=== PATIENT | female | born 1970 | race Caucasian/White ===

== ENCOUNTER → 2019-03-03 12:45 | Outpatient (CLI) | payer OTHER, SELFPAY ==
--- NOTE | 2019-03-03 13:04 | US_ITS ---
PROCEDURE: US THYROID CLINICAL INDICATION: THYROMEGALY COMPARISON: No exams were available for comparison FINDINGS: Right lobe: 4.5 x 2.0 x 3.5 cm the there is a mixed cystic and solid nodule in the lower pole measuring 3.3 x 1.5 cm. The nodule is well-circumscribed and is wider than tall with lobulated margins. No internal calcifications.. T rads level 4. Left lobe: 4.6 x 1.1 x 1.6 cm. There are 2 four mm hypoechoic nodules central aspect of the thyroid gland. These are hypoechoic not well-defined with no internal echoes wider than tall. Six-month follow-up suggested Isthmus: Additional findings: IMPRESSION: 3 cm T rads level 4 nodule on the right. Ultrasound-guided fine needle aspiration suggested. Recommend six-month follow-up of the small nodules on the left Dictated by: Troy Feliciano MD 03/04/2019 00:59 Electronically signed by Troy Feliciano MD in [place] 03/05/2019 06:55
== END ==
PROVIDERS: PCP Family Medicine; Visit Provider Family Medicine
DX: E01.0 Iodine-deficiency related diffuse (endemic) goiter (principal)
CPT/HCPCS: 76536

== ENCOUNTER → 2019-04-11 12:51 | Outpatient (CLI) | payer OTHER, SELFPAY ==
--- NOTE | 2019-04-11 12:58 | US_ITS ---
PROCEDURE: US FNA THYROID CLINICAL INDICATION: THYROID NODULE Right-sided dominant T rads level 4 complex thyroid nodule COMPARISON: US THYROID from 03/03/2019 TECHNIQUE: Following obtaining informed consent, using aseptic technique and local anesthesia with buffered lidocaine, fine-needle aspiration was performed of the nodule of interest using sonographic guidance. 3 passes were made into the nodule with a 21-gauge needle. Specimen was given to cytology. FINDINGS: CYTOLOGY: Negative for malignant cells IMPRESSION: Ultrasound-guided fine needle aspiration of the thyroid nodule on the right is negative for malignant cells. No immediate complications. The patient tolerated the procedure well without evidence of immediate complications and left the ultrasound suite in stable condition. Dictated by: Troy Feliciano MD 04/21/2019 14:25 Electronically signed by Troy Feliciano MD in [facility] 04/21/2019 14:25
== END ==
PROVIDERS: PCP Family Medicine; Visit Provider Family Medicine
DX: E04.1 Nontoxic single thyroid nodule (principal)
CPT/HCPCS: 10005; 76942

== ENCOUNTER → 2022-03-07 08:38 | Outpatient (CLI) | payer OTHER, BC, SELFPAY ==
[2022-03-07 09:06] LABS: Basophils # 0.3 K/mm3 (0-0.2); Basophils % 5.5 % (0.1-2.0); Eosinophils # 0.1 K/mm3 (0.0-0.4); Eosinophils % 2.3 % (0.1-12.0); Hematocrit 49.1 % (37.0-47.0); Lymphocytes # 1.5 K/mm3 (0.7-4.5); Lymphocytes % 33.6 % (10-50); Mean Corpuscular HGB Conc 32.7 g/dL (31.8-35.4); Mean Corpuscular Hemoglobin 28.7 pg (27.0-31.2); Mean Platelet Volume 9.2 fl (7.4-10.4); Monocytes # 0.3 K/mm3 (0.1-1.0); Monocytes % 7.2 % (1.7-9.3); Neutrophils # 2.6 K/mm3 (1.8-7.8); Platelet Count 233 K/mm3 (142-424); Red Blood Count 5.58 M/mm3 (4.20-5.40); Red Cell Distribution Width 14.5 % (11.5-17.5); White Blood Count 4.6 K/mm3 (4.8-10.8)
[2022-03-07 09:57] LABS: Hemoglobin A1C 5.4 % (4.0-6.0)
[2022-03-07 10:11] LABS: Chloride 103 mmol/L (98-107); Sodium 138 mmol/L (136-145)
[2022-03-07 10:14] LABS: Alanine Aminotransferase 38 U/L (12-78); Albumin Level 4.5 g/dl (3.5-5.0); Albumin/Globulin Ratio 1.6 (1.1-1.8); Alkaline Phosphatase 86 U/L (38-126); Aspartate Amino Transferase 41 U/L (14-36); Bilirubin,Total 0.8 mg/dl (0.2-1.3); Blood Urea Nitrogen 12 mg/dl (7-17); Calcium 9.9 mg/dl (8.4-10.2); Carbon Dioxide 29 mmol/L (22.0-30.0); Cholesterol 162 mg/dl (140-200); Estimated Glomerular Filt Rate 65 ml/min (>60); GFR (African American) 79 ML/MIN (>60); Globulin 2.8 g/dL (1.3-3.2); Glucose 89 mg/dl (74-100); Total Protein,Serum 7.3 g/dl (6.3-8.2); Triglycerides 119 mg/dl (30-150); VLDL Cholesterol 24 mg/dL (0-40)
[2022-03-07 10:15] LABS: Chol/HDL Ratio 4.6 (1-3.5); HDL Cholesterol 35 mg/dl (40-60)
[2022-03-07 10:26] LABS: Direct LDL Cholesterol 82.17 mg/dL (100-129)
[2022-03-07 10:45] LABS: Thyroid Stimulating Hormone 0.52 uIU/mL (0.465-4.68)
== END ==
PROVIDERS: PCP Family Medicine; Visit Provider Family Medicine
DX: I10 Essential (primary) hypertension (principal); E78.5 Hyperlipidemia, unspecified; E01.0 Iodine-deficiency related diffuse (endemic) goiter; E66.9 Obesity, unspecified; Z68.34 Body mass index [BMI] 34.0-34.9, adult
CPT/HCPCS: 36415; 80053; 80061; 83036; 84443; 85025

== ENCOUNTER 2022-04-13 17:46 | Emergency (ER) | payer OTHER, BC, SELFPAY ==
--- NOTE | 2022-04-13 18:58 | EXP.UTC ---
Discharge Plan Disposition Patient Disposition: Home, Self-Care Condition: Good Prescriptions Prescriptions: New benzonatate [benzonatate] 100 mg capsule 100 mg PO TIDP PRN (Reason: Cough) Qty: 30 0RF methylprednisolone 4 mg Tablets,Dose Pack 4 mg PO DIRECTED Qty: 21 0RF amoxicillin-pot clavulanate 875-125 mg Tablet 1 tab PO Q12H Qty: 20 0RF No Action lisinopril-hydrochlorothiazide 20-12.5 mg tablet 1 tab PO DAILY Qty: 30 0RF Referrals Follow up/Referrals: Anthony Robert MD [Primary Care Provider] - See instructions Activity Restrictions/Add. Instructions Additional Instructions/Restrictions: Drink plenty of fluids. Take tylenol or ibuprofen for pain or fever. Take the medications as directed. Follow up with your regular doctor. GO TO THE ER FOR ANY WORSENING SYMPTOMS Don't start the oral steroids until tomorrow, since you had the shot here today. Clinical Impressions Clinical Impression: Otitis media, Sinusitis Stand Alone Forms Stand Alone Forms: Work/School Release Instructions Patient Instructions: Middle Ear Infection Discharge ED Provider: Terell Gan [facility] [place] [place] General Stated complaint: right ear pain, sinus pressure Time Seen by Provider: 04/13/22 18:58 History of Present Illness Provider Complaint: She states that for the past 2 days she has had a ear pain, sinus congestion, low grade fever and malaise. Related Data Previous Rx's Medication Instructions Recorded lisinopril 20 1 tab PO DAILY #30 tabs 12/15/22 mg-hydrochlorothiazide 12.5 mg tablet amoxicillin 875 mg-potassium 1 tab PO Q12H #20 tabs 04/13/22 clavulanate 125 mg tablet benzonatate 100 mg capsule 100 mg PO TIDP PRN Cough #30 caps 04/13/22 methylprednisolone 4 mg tablets in 4 mg PO DIRECTED #21 tabs 04/13/22 a dose pack Allergies Allergy/AdvReac Type Severity Reaction Status Date / Time No Known Allergies Allergy Verified 04/13/22 19:23 [facility] Disclaimer: The information contained in this section may have been updated after the patient was seen, as this information can be updated by other users. Medical History Calf pain Calf swelling Social History Smoking Status: Never smoker alcohol intake: never substance use type: denies use current occupational status: employed Travel in the last 8 weeks: None household members: family housing: house ROS Obtained: Yes All systems reviewed & no additional complaints except as documented Constitutional Constitutional: Denies chills, Reports fever(s) and Reports poor appetite Eyes Eyes: Denies eye discharge ENT Ears, Nose, Mouth, and Throat: Denies ear discharge, Reports otalgia, Denies hearing loss, Denies sinus pain and Reports sore throat Cardiovascular Cardiovascular: Denies chest pain and Denies dyspnea Respiratory Respiratory: Denies chest congestion, Reports cough and Denies dyspnea Gastrointestinal Gastrointestingal: Denies abdominal pain, diarrhea, nausea or vomiting Musculoskeletal Musculoskeletal: Denies arthralgias Integumentary/Breasts Skin/Breast: Denies rash Physical Exam General General appearance: alert and in no apparent distress Head Head exam: atraumatic, normocephalic and normal inspection Eye Eye exam: Present normal appearance; Absent PERRL or EOMI ENT ENT exam: Present mucous membranes moist and normal external ear exam Expanded ENT Exam TM/Canal exam: Bilateral TM: erythema, bulging and effusion Nose exam: Absent sinus tenderness Nasal speculum exam: Bilateral: normal Mouth exam: Present normal external inspection and other; Absent drooling Teeth exam: Present normal inspection Throat exam: Present tonsillar erythema and tonsillomegaly Neck Neck exam: Present normal inspection, full ROM and trachea midline; Absent tenderness, meningismus or lymphadenopathy Ch
[2022-04-13 19:10] VITALS: BP 157/92; PULSE 71; RESP 19; TEMP 36.5; O2SAT 97; BMI 35.3
[2022-04-13 20:10] VITALS: BP 157/92; PULSE 71; RESP 19; TEMP 36.5; O2SAT 97
== END 2022-04-13 20:10 | disposition home or self-care (01) ==
PROVIDERS: Emergency Provider Nurse Practitioner Family; PCP Family Medicine
DX: H66.90 Otitis media, unspecified, unspecified ear (principal); J32.9 Chronic sinusitis, unspecified
CPT/HCPCS: 96372; 99212; G0463; J0696

== ENCOUNTER → 2022-08-19 06:48 | Outpatient (CLI) | payer BC, OTHER, SELFPAY ==
--- NOTE | 2022-08-19 07:11 | US_ITS ---
FINAL REPORT CLINICAL HISTORY: ELEVATED LFT FINDINGS: RIGHT UPPER QUADRANT ULTRASOUND Sonographic images of the right upper quadrant were obtained. The pancreas is partially obscured. There is mild fatty infiltration of the liver. The gallbladder is absent. The common duct is normal measuring 4 mm. Limited images of the right kidney are normal. IMPRESSION: Mild fatty liver. Reviewed, Interpreted and Dictated by Ilya Strauss III, MD Transcribed by Carmenza Barba Authenticated and [facility]
== END ==
PROVIDERS: PCP Family Medicine; Visit Provider Family Medicine
DX: R10.11 Right upper quadrant pain (principal); R79.89 Other specified abnormal findings of blood chemistry
CPT/HCPCS: 76705

== ENCOUNTER → 2022-11-26 08:10 | Outpatient (CLI) | payer BC, OTHER, SELFPAY ==
--- NOTE | 2022-11-26 | MM_ITS ---
PROCEDURE INFORMATION: Exam: MG Bilateral Screening 3D Mammography Exam date and time: 11/26/2022 8:03 AM Age: 52 years old Clinical indication: Screening mammogram. No personal or family history of breast cancer TECHNIQUE: Imaging protocol: Bilateral Screening tomosynthesis and 2D mammography including computer-aided detection (CAD) when performed. COMPARISON: 1. MG DMSB DIGITAL MAMM-SCREEN BILATERAL 02/02/2011 1:25 PM 2. MG DMSB DIGITAL MAMM-SCREEN BILATERAL 01/14/2010 2:41 PM 3. MG DIGMAMMS MAMMOGRAM SCREEN-BALLER TENDER N/C 12/20/2008 3:28 PM 4. MG DIGMAMMS MAMMOGRAM SCREEN-BALLER TENDER N/C 12/01/2007 3:28 PM FINDINGS: MAMMOGRAPHY: Breast composition: There are scattered areas of fibroglandular density. Mass: Stable benign-appearing subcentimeter nodules are present in the left breast. No new or morphologically suspicious nodule has developed to suggest malignancy. Architectural distortion: No new or suspicious architectural distortion. Calcifications: No new or suspicious calcifications are present Asymmetric density: No new or suspicious asymmetric density is present Skin thickening: None. Axillary adenopathy: None. IMPRESSION: No mammographic evidence of malignancy. Recommend annual screening mammography unless otherwise clinically indicated. ASSESSMENT: BI-RADS category 2: Benign
== END ==
PROVIDERS: PCP Family Medicine; Visit Provider Family Medicine
DX: Z12.31 Encounter for screening mammogram for malignant neoplasm of breast (principal)
CPT/HCPCS: 77063; 77067

== ENCOUNTER 2023-06-02 12:14 | Outpatient (CLI) | payer BC, OTHER, SELFPAY ==
[2023-06-02 12:30] LABS: Basophils # 0.1 K/mm3 (0-0.2); Basophils % 0.9 % (0.1-2.0); Eosinophils # 0.2 K/mm3 (0.0-0.4); Eosinophils % 2.3 % (0.1-12.0); Hematocrit 48.6 % (37.0-47.0); Hemoglobin 15.8 g/dL (12.2-16.2); Lymphocytes # 2.7 K/mm3 (0.7-4.5); Lymphocytes % 35.2 % (10-50); Mean Corpuscular HGB Conc 32.6 g/dL (31.8-35.4); Mean Corpuscular Hemoglobin 29.4 pg (27.0-31.2); Mean Corpuscular Volume 90.4 fl (81-99); Mean Platelet Volume 8.3 fl (7.4-10.4); Monocytes # 0.5 K/mm3 (0.1-1.0); Monocytes % 7.1 % (1.7-9.3); Neutrophils # 4.1 K/mm3 (1.8-7.8); Neutrophils % 54.5 % (37.0-80.0); Platelet Count 306 K/mm3 (142-424); Red Blood Count 5.38 M/mm3 (4.20-5.40); Red Cell Distribution Width 14.9 % (11.5-17.5); White Blood Count 7.6 K/mm3 (4.8-10.8)
[2023-06-02 14:20] LABS: Chloride 106 mmol/L (98-107); Sodium 141 mmol/L (136-145)
[2023-06-02 14:21] LABS: Potassium 4.1 mmoL/L (3.5-5.1)
[2023-06-02 14:23] LABS: Alanine Aminotransferase 37 U/L (12-78); Albumin Level 4.4 g/dl (3.5-5.0); Albumin/Globulin Ratio 1.6 (1.1-1.8); Alkaline Phosphatase 95 U/L (38-126); Anion Gap 10.1 mEq/L (5-15); Aspartate Amino Transferase 37 U/L (14-36); Bilirubin,Total 0.9 mg/dl (0.2-1.3); Blood Urea Nitrogen 11 mg/dl (7-17); Calcium 9.9 mg/dl (8.4-10.2); Carbon Dioxide 29 mmol/L (22.0-30.0); Estimated Glomerular Filt Rate 65 ml/min (>60); GFR (African American) 79 ML/MIN (>60); Globulin 2.8 g/dL (1.3-3.2); Glucose 94 mg/dl (74-100); Total Protein,Serum 7.2 g/dl (6.3-8.2)
[2023-06-02 14:39] LABS: HCG,Quantitative 5 mIU/ml (0-5.42)
== END 2023-06-02 23:59 ==
PROVIDERS: PCP Family Medicine; Visit Provider Obstetrics & Gynecology
DX: Z01.812 Encounter for preprocedural laboratory examination (principal); N39.3 Stress incontinence (female) (male)
CPT/HCPCS: 36415; 80053; 84702; 85025; 87086

== ENCOUNTER 2023-06-09 07:02 | Day surgery (SDC) | payer BC, OTHER, SELFPAY ==
[2023-06-08 12:49] VITALS: BMI 36.0
[2023-06-09] VITALS (11 sets, daily range): BP systolic 104–148; BP diastolic 54–87; PULSE 78–110; RESP 15–18; TEMP 36.2–36.6; O2SAT 93–98
[2023-06-09] MEDS: CEFAZOLIN 1GM VIAL 2 GM (07:54)
[2023-06-09] MEDS: WATER FOR IRRIGATION,STERILE 3,000 ML 200 ML IR (08:04)
[2023-06-09] MEDS: ROPIVACAINE 0.5% 30ML VIAL 150 MG (08:05)
[2023-06-09] MEDS: LIDOCAINE 1% W/EPI 1:100,000 20ML VIAL 20 ML ×2 (08:05)
--- NOTE | 2023-06-09 08:43 | P.PNANES_ITS ---
[facility] Anesthesia Record Part I Anesthesia Record I Intake, IV Amount: 1,400 Hydration: Adequate Estimated blood loss (mL): 50 Urine output (mL): 100 Blood Products used (#): none Blood Pressure: 104/58 SaO2: 95 Pulse Rate: 110 Airway Patency: Patent Respiratory Rate: 18 Temperature: 97.3 F Patient is:: Drowsy, Oral/Nasal airway (9.0 Oral airway.) and Stable Stable to PACU at:: 08:46
--- NOTE | 2023-06-09 09:11 | EXP.OP.NOTE ---
Date of procedure: 06/09/23 Pre-op Diagnosis:: Stress urinary incontinence Post-op Diagnosis:: Stress urinary incontinence Procedure performed:: Tension-free retropubic mid urethral sling Surgeon:: Angeles Garibay DO WOOL HANDLER:: Other (Ashtyn Bahena) Anesthesia: GETA Estimated blood loss (mL): 10 Clinical Note:: Cheryl Palomino is a 52-year-old presenting today for surgical management of stress urinary incontinence. The patient was counseled on the risks, benefits, and alternatives to a mid-urethral sling, including but not limited to infection, urinary retention, mesh erosion, bleeding, injury to surrounding structures specifically including the bladder, urethra, and surrounding vasculature, voiding dysfunction, and unforeseen complications. Consent was preoperatively signed. Operative findings:: 1. Normal external genitalia. Normal appearing cervix. Mobile and mid-position urethra palpated. 2. On cystourethroscopy, a full survey of the bladder was performed after passage of the trocars, demonstrating no evidence of trocar perforation, other injury, trauma bleeding, or lesions. Brisk bilateral reflux of clear urine was visualized from the ureteral orifices. The urethra was intact without evidence of injury. Operative note:: The patient was taken to the operating room where anesthesia was induced. Preoperative antibiotics were given of 2g IV Ancef. IV access was patent. The patient was positioned in standard dorsal lithotomy using stirrups, taking care to avoid hyperextension and flexion of the joints, as well as pad any pressure points. The patient was prepped and draped in the sterile fashion. A time-out was performed. A Latex-free Kimbrough was placed into the bladder. The suprapubic area was marked for the site of the future trocar passes, approximately 2 cm lateral to the midline. This area was hydrodistended with Neurontin 20 mL at each site. An Allis clamp was placed 1 cm proximal to the urethral meatus and another at the level of the urethrovesical junction along the midline. The mid-urethra was palpated. Local anesthetic with epinephrine was injected in the suburethral and bilaterally in the periurethral space. A vertical incision was then made in the vaginal epithelium at the level of the mid urethra. The vaginal epithelium was dissected off the underlying fascia with Metzenbaum scissors. Allis clamps were used for traction and Metzenbaum scissors were used to dissect the periurethral tunnel to the level of the inferior pubic ramus. This was repeated on the contralateral side. The bladder was confirmed to be empty. The rigid urethral catheter guide was placed in the bladder neck, deviating the bladder to the patient's left, with the trocar being passed on the patient's right. The [employer] advantage transvaginal tape trocar was placed in the previously dissected periurethral tunnel and passed retropubically, hugging the back of the pubic bone, and exiting through the suprapubic skin site. The vaginal epithelium was then inspected and no perforation was seen. Passage of the trocar was then repeated on the patient's left side, this time with the bladder deviated to the right with the rigid urethral catheter guide. The vaginal epithelium was inspected and no perforation was seen. The Kimbrough was removed and a cystoscopy performed. A full survey of the bladder was performed again, demonstrating no evidence of trocar perforation, other injury, bleeding, or lesions. Brisk bilateral efflux of clear urine was visualized from the ureteral orifices. The urethra was intact without evidence of injury. The cystoscope was removed, and the bladder drained. The mesh was pulled to a tension free position in the mid urethra. An Allis was used to clyde 1 cm in the midline to ensure that the mesh was not too tight/restrictive. The plastic sheaths were removed. A repeat vaginal exam confirmed that there were no vaginal perforations with the mesh. Curved Coburn scissors were used to ensure tension-free mesh placement in the midline, setting the sling in place. Excess mesh was removed suprapubically and these sites are closed with Dermabond. The suburethral incision was closed with 2-0 Vicryl running locking stich, taking care to not incorporate the mesh into the closure. Hemostasis was excellent. The counts were correct. The patient tolerated the procedure well. She was brought to the recovery room in stable condition. She will be discharged after meeting all discharge criteria to include voiding independently with a normal PVR. Condition: stable Disposition: same day Specimens:: None Complications:: None
[2023-06-09] MEDS: ONDANSETRON 4MG/2ML VIAL 4 MG IV (09:31)
--- NOTE | 2023-06-09 09:52 | SUR.PHASEII ---
pt had 175cc of urine per cath. notified dr. kunz and she stated to keep patient until she urinates again and cath her again.
--- NOTE | 2023-06-14 16:33 | EXP.ANES.II ---
[facility] Anesthesia Record Part II Anesthesia Record Part II Discharge Time: 09:11 Destination: Surgical Day Care (OP Surgery) PACU nurse assessment reviewed?: Yes Patient Condition:: Good Anesthesia Complications:: None Swallowing reflex intact?: Yes Airway Patency: Patent Cyanosis?: No Blood Pressure: 126/72 SaO2: 97 Respiratory Rate: 16 Pulse Rate: 88 Temperature: 98 F Mental Status: Alert & Oriented Pain level:: 0 Nausea and/or vomitting:: None Intake, IV Amount: 0 Hydration: Adequate
[2023-06-14 16:34] VITALS: BP 126/72; PULSE 88; RESP 16; TEMP 36.6; O2SAT 97
== END 2023-06-09 10:55 | disposition home or self-care (01) ==
PROVIDERS: Visit Provider Obstetrics & Gynecology
PROC: (CPT 57288; principal; 2023-06-09 07:30)
DX: N39.3 Stress incontinence (female) (male) (principal)
CPT/HCPCS: 57288; 96374; C1771; J2405

== ENCOUNTER 2023-08-24 12:47 | Outpatient (CLI) | payer BC, OTHER, SELFPAY ==
--- NOTE | 2023-08-24 12:52 | US_ITS ---
FINAL REPORT TECHNIQUE: Real-time grayscale and color ultrasound of the thyroid was performed. CLINICAL HISTORY: GOITER COMPARISON: 03/03/2019 FINDINGS: The thyroid gland measures 58 x 26 x 38 mm on the right and 51 x 13 x 16 mm on the left. The isthmus measures 3 mm. The parenchyma is unremarkable . Nodules: There is a multitude of nodules throughout both lobes of the thyroid. On the left nodules are generally subcentimeter in size. Right dominant nodule proximally 33 x 19 mm, similar to prior study, heterogeneous cystic and solid component, TR 3. Upper pole right lobe 14 mm cystic lesion. Upper pole right lobe 2nd 14 mm cystic lesion. IMPRESSION: Dominant mass right lobe similar to the prior study. If not previously sampled, recommend biopsy. Reviewed, Interpreted and Dictated by Nickolas Arriola MD Transcribed by Marie Cintron Authenticated and [facility]
== END 2023-08-24 23:59 | disposition home or self-care (01) ==
LOC: RAD 12:48
PROVIDERS: PCP Family Medicine; Visit Provider Family Medicine
DX: E04.9 Nontoxic goiter, unspecified (principal)
CPT/HCPCS: 76536

== ENCOUNTER 2024-03-06 14:55 | Outpatient (CLI) | payer BC, OTHER, SELFPAY ==
--- NOTE | 2024-03-06 15:00 | XR_ITS ---
FINAL REPORT CLINICAL HISTORY: bilateral trigger thumb FINDINGS: Right hand Three views were obtained. There is no fracture or dislocation. There are mild degenerative changes. No soft tissue abnormality is identified. IMPRESSION: No acute process. Reviewed, Interpreted and Dictated by Ilya Strauss III, MD Transcribed by Carmenza Barba Authenticated and [facility]
--- NOTE | 2024-03-06 15:00 | XR_ITS ---
FINAL REPORT CLINICAL HISTORY: bbilateral trigger thumb FINDINGS: Left hand Three views were obtained. There is no fracture or dislocation. There are mild degenerative changes. There is a mass in the fifth proximal phalanx, favor cyst or enchondroma. IMPRESSION: Cyst or enchondroma in the fifth proximal phalanx. Reviewed, Interpreted and Dictated by Ilya Strauss III, MD Transcribed by Carmenza Barba Authenticated and . [facility]
== END 2024-03-06 23:59 | disposition home or self-care (01) ==
LOC: RAD 14:57
PROVIDERS: PCP Family Medicine; Visit Provider Physician Assistant
DX: M65.311 Trigger thumb, right thumb (principal); M65.312 Trigger thumb, left thumb
CPT/HCPCS: 73130

== ENCOUNTER 2024-09-21 07:49 | Outpatient (CLI) | payer BC, OTHER, SELFPAY ==
--- OUTSIDE RECORDS SUMMARY | 2024-08-02 06:53 | XMS_ITS | Encounter Summary ---
Author Organization [facility] Address [address] [place] [address] Care Team Providers Care Inside B2B Sales Name Role Phone Jordan Coffey Primary Care Provider [phone] Encounter Details Date Type Department Care Team (Latest Contact Info) Description 08/02/2024 6:53 AM EDT - 08/02/2024 11:59 PM EDT Hospital Encounter EDG CVMHU EKG ATTN: Appointments in this department are performed at various locations in the community on our Cardiovascular mobile health unit. You can look online to verify your site or call [phone] [address] Kali Khan, DO [address] [place] [address] Screening for cardiovascular condition Discharge Disposition: Home or Self Care Social History Tobacco Use Types Packs/Day Years Used Date Smoking Tobacco: Never Assessed Comments Unknown Sex and Gender Information Value Date Recorded Sex Assigned at Not on file Legal Sex Female 11:59 PM EDT Gender Identity Not on file Sexual Orientation Not on file documented as of this encounter Medications at Time of Discharge ferrous sulfate 325 mg (65 mg iron) tablet Take 325 mg by mouth 2 times daily. lisinopril-hydroch lorothiazide (PRINZIDE;ZESTORET IC) 10-12.5 mg per tablet Take 12.5 Tabs by mouth daily. metoprolol (LOPRESSOR) 25 mg tablet Take 25 mg by mouth daily. simvastatin (ZOCOR) 20 mg tablet Take 20 mg by mouth nightly. documented as of this encounter Discharge Disposition Disposition Code Departure Means Destination Home or Self Care documented in this encounter Plan of Treatment Not on file documented as of this encounter Procedures Procedure Name Priority Date/Time Associated Diagnosis Comments EK EKG CVMHU SCREENING Routine 08/02/2024 10:00 AM EDT Screening for cardiovascular condition documented in this encounter Results * EK EKG CVMHU SCREENING (08/02/2024 10:00 AM EDT) Anatomical Region Laterality Modality Electrocardiogra phy 08/02/2024 2:08 PM EDT Impressions 08/07/2024 10:[address] [facility] Test Date: 2024-08-02 Pat Name: VINOD PALOMINO Department: DEPID Room: Gender: Female Job Hand: : 1970 Requested By: KALI DUMONT Order Number: [id number] Reading MD: Shaniqua Garza MD Interpretive Statements No Atrial Fibrillation detected at the time of screening Electronically Signed On 08-07-2024 10:39:41 EDT by Shaniqua Garza MD Narrative Procedure Note Martha Garza MD - 08/07/[address] [facility] Test Date: 2024-08-02 Pat Name: VINOD PALOMINO Department: DEPID Room: Gender: Female Job Hand: : 1970 Requested By: KALI PERSON Order Number: [id number] Reading MD: Shaniqua Garza MD Interpretive Statements No Atrial Fibrillation detected at the time of screening Electronically Signed On 08-07-2024 10:39:41 EDT by Shaniqua Garza MD us Kali Khan DO IMG CVMHU EKG ORDERABLE S Final Result documented in this encounter Visit Diagnoses Diagnosis Screening for cardiovascular condition Screening for other and unspecified cardiovascular conditions documented in this encounter Care Teams Inside B2B Sales Relationship Specialty Start Date End Date Jordan Coffey [address] [place] [address] [address] [place] [address] PCP - General 11/06/10 documented as of this encounter
--- OUTSIDE RECORDS SUMMARY | 2024-08-02 06:53 | XMS_ITS | Encounter Summary ---
Author Organization [facility] [place] [address] Care Team Providers Care Semiconductor Engineer Name Role Phone Jordan Coffey Primary Care Provider [phone] Reason for Referral * Vascular Imaging (Routine) - Authorization Not Needed Specialty Diagnoses / Procedures Referred By Contac t Referred To Contact Radiology Diagnoses Screening for cardiovascular condition Procedures [facility] VASCULAR CVMHU SCREENING FOUR EXAMS Kali Khan DO [address] [place] [address] Phone: tel: fax: Referral ID Status Reason Start Date Expiration Date Visits Requested Visits Authorized [id number] Authorization Not Needed 07/07/2024 07/07/2026 1 1 Reason for Visit * Vascular Imaging (Routine) - Authorization Not Needed Specialty Diagnoses / Procedures Referred By Aliyah pugh Referred To Contact Radiology Diagnoses Screening for cardiovascular condition Procedures [facility] VASCULAR CVMHU SCREENING FOUR EXAMS Kali Khan DO [address] [place] [address] Phone: tel: fax: Referral ID Status Reason Start Date Expiration Date Visits Requested Visits Authorized [id number] Authorization Not Needed 07/07/2024 07/07/2026 1 1 Encounter Details Date Type Department Care Team (Latest Contact Info) Description 08/02/2024 6:53 AM EDT - 08/02/2024 11:59 PM EDT Hospital Encounter EDG CVMHU ECHO VAS ATTN: Appointments in this department are performed at various locations in the community on our Cardiovascular mobile health unit. You can look online to verify your site or call [phone]. [place] [id number] Kali Khan, [address] [place] [address] Screening for cardiovascular condition Discharge Disposition: Home or Self Care Social History Tobacco Use Types Packs/Day Years Used Date Smoking Tobacco: Never Assessed Comments Unknown Sex and Gender Information Value Date Recorded Sex Assigned at Not on file Legal Sex Female 11:59 PM EDT Gender Identity Not on file Sexual Orientation Not on file documented as of this encounter Last Filed Vital Signs Vital Sign Reading Time Taken Comments Blood Pressure 143/84 08/02/2024 9:00 AM EDT Pulse - - Temperature - - Respiratory Rate - - Oxygen Saturation - - Inhaled Oxygen Concentration - - Weight 95.3 kg (210 lb) 08/02/2024 9:00 AM EDT Height 162.6 cm (5' 4 ) 08/02/2024 9:00 AM EDT Body Mass Index 36.05 08/02/2024 9:00 AM EDT documented in this encounter Medications at Time of Discharge [...] Procedure Name Priority Date/Time Associated Diagnosis Comments [facility] VASCULAR CVMHU SCREENING FOUR EXAMS Routine 08/02/2024 9:59 AM EDT Screening for cardiovascular condition POCT HEART RISK ASSESSMENT Routine 08/02/2024 documented in this encounter Results * [facility] VASCULAR CVMHU SCREENING FOUR EXAMS (08/02/2024 9:59 AM EDT) Anatomical Region Laterality Modality Electrocardiogra phy 08/02/2024 9:04 AM EDT Impressions 08/02/2024 10:42 PM EDT Conclusions * No plaque seen during carotid artery screening. No need for follow up. * No evidence of abdominal aortic aneurysm. * Normal peripheral artery screening. * The blood pressure taken at this screening is above normal ranges described by the [place] [employer] guidelines. The patient should follow this up with their primary care physician. Narrative Procedure Note Félix Kerns MD - 08/02/2024 IMPRESSION Conclusions * No plaque seen during carotid artery screening. No need for followup. * No evidence of abdominal aortic aneurysm. * Normal peripheral artery screening. * The blood pressure taken at this screening is above normal ranges described by the [place] [employer] guidelines. The patientshould follow this up with their primary care physician. Kali Khan DO IMG VASCULAR ORDERABLES Final Result * (ABNORMAL) POCT HEART RISK ASSESSMENT (08/02/2024) [employer] Signature Cholesterol 170 mg/dL [facility] Comment:went over diet and e xercise to help with numbers and gave info on glucose being elevated HDL 43 >=40 mg/dL [facility] Triglyceride 124 <=150 mg/dL [facility] LDL Calculated 102(A) <=100 mg/dL [facility] Glucose Lvl 121 MG/DL [facility] 08/02/2024 Kali Khan DO POINT OF CARE TEST ORDE RABLES Final Result [facility] documented in this encounter Visit Diagnoses Diagnosis Screening for cardiovascular condition Screening for other and unspecified cardiovascular conditions documented in this encounter Care Teams Semiconductor Engineer Relationship Specialty Start Date End Date Jordan Coffey [address] [place] [address] PCP - General 11/06/10 documented as of this encounter
--- OUTSIDE RECORDS SUMMARY | 2024-09-21 07:52 | XMS_ITS | Encounter Summary ---
Author Organization [place] [address] Care Team Providers Care Veterinary Meat Inspector Name Role Phone Jordan Coffey Primary Care Provider [phone] Encounter Details Date Type Department Care Team (Latest Contact Info) Description 08/03/2024 Results Follow-Up EDG CVMHU ECHO VAS ATTN: Appointments in this department are performed at various locations in the community on our Cardiovascular mobile health unit. You can look online to verify your site or call [phone]. [place] [id number] Duarte Kimbrough, RN [facility] VASCULAR CVMHU SCREENING FOUR EXAMS Social History Tobacco Use Types Packs/Day Years Used Date Smoking Tobacco: Never Assessed Comments Unknown Sex and Gender Information Value Date Recorded Sex Assigned at Not on file Legal Sex Female 11:59 PM EDT Gender Identity Not on file Sexual Orientation Not on file documented as of this encounter Plan of Treatment Not on file documented as of this encounter Visit Diagnoses Not on filedocumented in this encounter Care Teams Veterinary Meat Inspector Relationship Specialty Start Date End Date Jordan Coffey [address] [facility] [address] [place] [id number] PCP - General 11/06/10 documented as of this encounter
--- OUTSIDE RECORDS SUMMARY | 2024-09-21 07:52 | XMS_ITS | Clinical Summary ---
Author Organization [facility] Address [facility] [place] [address] Phone Care Team Providers Care Newspaper Carrier Name Role Phone Jordan Coffey Primary Care Provider [phone] Allergies No known active allergies Medications lisinopril-hydro chlorothiazide (PRINZIDE;ZESTOR ETIC) 10-12.5 mg per tablet Take 12.5 Tabs by mouth daily. Active simvastatin (ZOCOR) 20 mg tablet Take 20 mg by mouth nightly. Active metoprolol (LOPRESSOR) 25 mg tablet Take 25 mg by mouth daily. Active ferrous sulfate 325 mg (65 mg iron) tablet Take 325 mg by mouth 2 times daily. Active Encounters Date Type Department Care Team Description 08/03/2024 Results Follow-Up EDG CVMHU ECHO VAS ATTN: Appointments in this department are performed at various locations in the community on our Cardiovascular mobile health unit. You can look online to verify your site or call [phone]. [place] [id number] Duarte Kimbrough, RN POCT HEART RISK ASSESSMENT 08/03/2024 Results Follow-Up EDG CVMHU ECHO VAS ATTN: Appointments in this department are performed at various locations in the community on our Cardiovascular mobile health unit. You can look online to verify your site or call [phone] [address] Duarte Kimbrough, RN [facility] VASCULAR CVMHU SCREENING FOUR EXAMS 08/02/2024 6:53 AM EDT - 08/02/2024 11:59 PM EDT Hospital Encounter EDG CVMHU EKG ATTN: Appointments in this department are performed at various locations in the community on our Cardiovascular mobile health unit. You can look online to verify your site or call [phone]. [place] [address] Kali Khan, DO Screening for cardiovascular condition Discharge Disposition: Home or Self Care 08/02/2024 6:53 AM EDT - 08/02/2024 11:59 PM EDT Hospital Encounter EDG CVMHU ECHO VAS ATTN: Appointments in this department are performed at various locations in the community on our Cardiovascular mobile health unit. You can look online to verify your site or call [phone]. [place] [id number] Kali Khan, DO Screening for cardiovascular condition Discharge Disposition: Home or Self Care from Last 3 Months Surgical History Surgery Date Site/Laterality Comments HYSTERECTOMY BACK SURGERY 2000 lumbar surgery Social History Tobacco Use Types Packs/Day Years Used Date Smoking Tobacco: Never Assessed Comments Unknown Sex and Gender Information Value Date Recorded Sex Assigned at Not on file Legal Sex Female 11:59 PM EDT Gender Identity Not on file Sexual Orientation Not on file Obstetrics History Last Filed Vital Signs Vital Sign Reading Time Taken Comments Blood Pressure 143/84 08/02/2024 9:00 AM EDT Pulse - - Temperature - - Respiratory Rate - - Oxygen Saturation - - Inhaled Oxygen Concentration - - Weight 95.3 kg (210 lb) 08/02/2024 9:00 AM EDT Height 162.6 cm (5' 4 ) 08/02/2024 9:00 AM EDT Body Mass Index 36.05 08/02/2024 9:00 AM EDT Plan of Treatment Health Maintenance Due Date Last Done Comments Annual Wellness Exam 10/22/1971 Cervical Cancer Screening 1989 Pap Smear 1989 HPV/Pap Cotest 1998 Breast Cancer Screening 2008 Cologuard 2013 Colon Cancer Screening 2013 Colonoscopy 2013 FIT 2013 Sigmoidoscopy 2013 Virtual Colonography 2013 Pneumococcal Vaccine 50+ (1 of 1 - PCV) 2018 Zoster (1 of 2) 2018 COVID-19 Vaccine (2023-2 5 season) 2023 Influenza Vaccine (Season Ended) 2024 DTaP/TDaP/Td (2 - Td or Tdap) 08/06/2028, 06/09/1996 Hepatitis B Vaccine Completed 05/29/1993, 12/24/1992, 11/21/1992 Meningococcal B Vaccine Aged Out No l onger eligible based on patient's age to complete this topic Procedures Procedure Name Priority Date/Time Associated Diagnosis Comments EK EKG CVMHU SCREENING Routine 08/02/2024 10:00 AM EDT Screening for cardiovascular condition [facility] VASCULAR CVMHU SCREENING FOUR EXAMS Routine 08/02/2024 9:59 AM EDT Screening for cardiovascular condition POCT HEART RISK ASSESSMENT Routine 08/02/2024 from Last 3 Months Results * EK EKG CVMHU SCREENING (08/02/2024 10:00 AM EDT) Anatomical Region Laterality Modality Electrocardiogra phy 08/02/2024 2:08 PM EDT Impressions 08/07/2024 10:39 AM EDT [place] Test Date: 2024-08-02 Pat Name: VINOD PALOMINO Department: DEPID Room: Gender: Female Gericare Aide Teacher: : 1970 Requested By: KALI DUMONT Order Number: [id number] Reading MD: Shaniqua Garza MD Interpretive Statements No Atrial Fibrillation detected at the time of screening Electronically Signed On 08-07-2024 10:39:41 EDT by Shaniqua Garza MD Narrative Procedure Note Martha Garza MD - 08/07/2024 IMPRESSION [place] Test Date: 2024-08-02 Pat Name: VINOD PALOMINO Department: DEPID Room: Gender: Female Gericare Aide Teacher: : 1970 Requested By: KALI PERSON Order Number: [id number] Reading MD: Shaniqua Garza MD Interpretive Statements No Atrial Fibrillation detected at the time of screening Electronically Signed On 08-07-2024 10:39:41 EDT by Shaniqua Garza MD [facility] CVU EKG ORDERABLE S Final Result * [facility] VASCULAR CVMHU SCREENING FOUR EXAMS (08/02/2024 9:59 [...] is above normal ranges described by the [place] Heart [employer] guidelines. The patient should follow this up with their primary care physician. Narrative Procedure Note Félix Kerns MD - 08/02/2024 IMPRESSION Conclusions * No plaque seen during carotid artery screening. No need for followup. * No evidence of abdominal aortic aneurysm. * Normal peripheral artery screening. * The blood pressure taken at this screening is above normal ranges described by the [place] Heart [employer] guidelines. The patientshould follow this up with their primary care physician. [facility] DO [facility] VASCULAR ORDERABLES Final Result * (ABNORMAL) POCT HEART RISK ASSESSMENT (08/02/2024) Cholesterol 170 mg/dL [facility] Comment:went over diet and e xercise to help with numbers and gave info on glucose being elevated HDL 43 >=40 mg/dL [facility] Triglyceride 124 <=150 mg/dL [facility] LDL Calculated 102(A) <=100 mg/dL [facility] Glucose Lvl 121 MG/DL [facility] 08/02/2024 [facility] POINT OF CARE TEST ORDE RABLES Final Result [facility] from Last 3 Months Insurance ERICKA PPO Care Teams Newspaper Carrier Relationship Specialty Start Date End Date Jordan Coffey [address] [place] [facility] [address] [place] [id number] PCP - General 11/06/10
--- OUTSIDE RECORDS SUMMARY | 2024-09-21 07:52 | XMS_ITS | Encounter Summary ---
Author Organization [place] [address] Care Team Providers Care Cookie Breaker Name Role Phone Jordan Coffey Primary Care Provider [phone] Encounter Details Date Type Department Care Team (Latest Contact Info) Description 08/03/2024 Results Follow-Up EDG CVMHU ECHO VAS ATTN: Appointments in this department are performed at various locations in the community on our Cardiovascular mobile health unit. You can look online to verify your site or call [phone]. [place] [id number] Duarte Kimbrough, RN POCT HEART RISK ASSESSMENT Social History Tobacco Use Types Packs/Day Years [...] on filedocumented in this encounter Care Teams Cookie Breaker Relationship Specialty Start Date End Date Jordan Coffey [address] [facility] [address] [place] [id number] PCP - General 11/06/10 documented as of this encounter
--- NOTE | 2024-09-21 08:00 | MM_ITS ---
PROCEDURE INFORMATION: Exam: MG Bilateral Screening 3D Mammography Exam date and time: 09/21/2024 7:53 AM Age: 53 years old Clinical indication: Screening examination TECHNIQUE: Imaging protocol: Bilateral Screening tomosynthesis and 2D mammography including computer-aided detection (CAD) when performed. COMPARISON: 1. MG MM DIG SCREENING MAMM BI W/CAD 11/26/2022 8:03 AM 2. MG DMSB DIGITAL MAMM-SCREEN BILATERAL 02/02/2011 1:25 PM FINDINGS: MAMMOGRAPHY: Breast composition: There are scattered areas of fibroglandular density. Mass: None. Architectural distortion: None. Calcifications: No suspicious calcifications. Asymmetric density: None. Skin thickening: None. Axillary adenopathy: None. IMPRESSION: No mammographic evidence of malignancy. Annual screening is recommended unless otherwise clinically indicated. ASSESSMENT: BI-RADS Category 1: Negative.
== END 2024-09-21 23:59 | disposition home or self-care (01) ==
LOC: RAD 07:51
PROVIDERS: PCP Family Medicine; Referring Provider Obstetrics & Gynecology; Visit Provider Obstetrics & Gynecology
DX: Z12.31 Encounter for screening mammogram for malignant neoplasm of breast (principal); R92.323 Mammographic fibroglandular density, bilateral breasts
CPT/HCPCS: 77063; 77067

== ENCOUNTER 2024-10-09 17:29 | Outpatient (CLI) | payer BC, OTHER, SELFPAY ==
--- OUTSIDE RECORDS SUMMARY | 2024-10-09 17:31 | XMS_ITS | Encounter Summary ---
Author Organization [place] [address] Care Team Providers Care Sld Teacher Name Role Phone Jordan Coffey Primary Care Provider [phone] Encounter Details Date Type Department Care Team (Latest Contact Info) Description 08/03/2024 Results Follow-Up EDG CVMHU ECHO VAS ATTN: Appointments in this department are performed at various locations in the community on our Cardiovascular mobile health unit. You can look online to verify your site or call [phone]. [place] [id number] Duarte Kimbrough, RN POCT HEART RISK ASSESSMENT [...] on filedocumented in this encounter Care Teams Sld Teacher Relationship Specialty Start Date End Date Jordan Coffey [address] [facility] [address] [place] [id number] PCP - General 11/06/10 documented as of this encounter
--- OUTSIDE RECORDS SUMMARY | 2024-10-09 17:31 | XMS_ITS | Encounter Summary ---
Author Organization [place] [address] Care Team Providers Care Tire Balancer Name Role Phone Jordan Coffey Primary Care Provider [phone] Encounter Details Date Type Department Care Team (Latest Contact Info) Description 08/03/2024 Results Follow-Up EDG CVMHU ECHO VAS ATTN: Appointments in this department are performed at various locations in the community on our Cardiovascular mobile health unit. You can look online to verify your site or call [phone]. [place] [id number] Duarte Kimbrough, RN [facility] VASCULAR CVMHU SCREENING FOUR EXAMS Social [...] on filedocumented in this encounter Care Teams Tire Balancer Relationship Specialty Start Date End Date Jordan Coffey [address] [facility] [address] [place] [id number] PCP - General 11/06/10 documented as of this encounter
--- OUTSIDE RECORDS SUMMARY | 2024-10-09 17:31 | XMS_ITS | Clinical Summary ---
Author Organization [facility] Address [facility] [place] [address] Phone Care Team Providers Care Home Health Nurse Name Role Phone Jordan Coffey Primary Care Provider [phone] Allergies No known active allergies Medications lisinopril-hydro [...] online to verify your site or call [phone]. [place] [phone] Duarte Kimbrough, RN POCT HEART RISK ASSESSMENT 08/03/2024 Results Follow-Up EDG CVMHU ECHO VAS ATTN: Appointments in this department are performed at various locations in the community on our Cardiovascular mobile health unit. You can look online to verify your site or call [phone] [address] Duarte Kimbrough, RN [facility] VASCULAR CVMHU SCREENING FOUR EXAMS 08/02/2024 6:53 AM EDT - 08/02/2024 11:59 PM EDT Hospital Encounter EDG CVMHU EKG ATTN: Appointments in this department are performed at various locations in the community on our Cardiovascular mobile health unit. You can look online to verify your site or call [phone]. [place] [address] Kali Khan, DO Screening for cardiovascular condition Discharge Disposition: Home or Self Care 08/02/2024 6:53 AM EDT - 08/02/2024 11:59 PM EDT Hospital Encounter EDG CVMHU ECHO VAS ATTN: Appointments in this department are performed at various locations in the community on our Cardiovascular mobile health unit. You can look online to verify your site or call [phone]. [place] [id number] Kali Khan, DO Screening for cardiovascular condition [...] Vaccine (2023-2 5 season) 2023 Influenza Vaccine (#1) 2024 DTaP/TDaP/Td (2 - Td or Tdap) 08/06/2028, 06/09/1996 Hepatitis B Vaccine Completed 05/29/1993, 12/24/1992, 11/21/1992 Meningococcal B Vaccine Aged Out No l onger eligible based on patient's age to complete this topic Procedures Procedure Name Priority Date/Time Associated Diagnosis Comments EK EKG CVMHU SCREENING Routine 08/02/2024 10:00 AM EDT Screening for cardiovascular condition [facility] VASCULAR CVMHU SCREENING FOUR EXAMS Routine 08/02/2024 9:59 AM EDT Screening for cardiovascular condition POCT HEART RISK ASSESSMENT Routine 08/02/2024 from Last 3 Months Results * EK EKG CVMHU SCREENING (08/02/2024 10:00 AM EDT) Anatomical Region Laterality Modality Electrocardiogra phy 08/02/2024 2:08 PM EDT Impressions 08/07/2024 10:39 AM EDT [place] Test Date: 2024-08-02 Pat Name: VINOD PALOMINO Department: DEPID Room: Gender: Female Complex Commercial Litigation Paralegal: : 1970 Requested By: KALI DUMONT Order Number: [id number] Reading MD: Shaniqua Garza MD Interpretive Statements No Atrial Fibrillation detected at the time of screening Electronically Signed On 08-07-2024 10:39:41 EDT by Shaniqua Garza MD Narrative Procedure Note Martha Garza MD - 08/07/2024 IMPRESSION [place] Test Date: 2024-08-02 Pat Name: VINOD PALOMINO Department: DEPID Room: Gender: Female Complex Commercial Litigation Paralegal: : 1970 Requested By: KALI PERSON Order Number: [id number] Reading MD: Shaniqua Garza MD Interpretive Statements No Atrial Fibrillation detected at the time of screening Electronically Signed On 08-07-2024 10:39:41 EDT by Shaniqua Garza MD [facility] CVU EKG ORDERABLE S Final Result * [facility] VASCULAR CVMHU SCREENING FOUR EXAMS (08/02/2024 [...] is above normal ranges described by the [place] Heart [employer] guidelines. The patient should follow this up with their primary care physician. Narrative Procedure Note Félix Kerns MD - 08/02/2024 IMPRESSION Conclusions * No plaque seen during carotid artery screening. No need for followup. * No evidence of abdominal aortic aneurysm. * Normal peripheral artery screening. * The blood pressure taken at this screening is above normal ranges described by the [place] Heart [employer] guidelines. The patientshould follow this up with their primary care physician. [facility] DO [facility] VASCULAR ORDERABLES Final Result * (ABNORMAL) POCT HEART RISK ASSESSMENT (08/02/2024) Cholesterol 170 mg/dL [facility] Comment:went over diet and e xercise to help with numbers and gave info on glucose being elevated HDL 43 >=40 mg/dL [facility] Triglyceride 124 <=150 mg/dL [facility] LDL Calculated 102(A) <=100 mg/dL [facility] Glucose Lvl 121 MG/DL [facility] 08/02/2024 [facility] POINT OF CARE TEST ORDE RABLES Final Result [facility] from Last 3 Months Insurance ERICKA PPO Care Teams Home Health Nurse Relationship Specialty Start Date End Date Jordan Coffey [address] [facility] [address] [place] [id number] PCP - General 11/06/10
[2024-10-09 18:04] LABS: Alanine Aminotransferase 35 U/L (12-78); Albumin Level 4.8 g/dl (3.5-5.0); Albumin/Globulin Ratio 1.5 (1.1-1.8); Alkaline Phosphatase 89 U/L (38-126); Anion Gap 17.7 mEq/L (5-15); Aspartate Amino Transferase 46 U/L (14-36); Bilirubin,Total 1.2 mg/dl (0.2-1.3); Blood Urea Nitrogen 13 mg/dl (7-17); Calcium 8.9 mg/dl (8.4-10.2); Carbon Dioxide 24 mmol/L (22.0-30.0); Chloride 101 mmol/L (98-107); Creatinine,Serum 0.70 mg/dl (0.52-1.04); Estimated Glomerular Filt Rate 87 ml/min (>60); GFR (African American) 105 ML/MIN (>60); Globulin 3.1 g/dL (1.3-3.2); Glucose 90 mg/dl (74-100); Potassium 3.7 mmoL/L (3.5-5.1); Sodium 139 mmol/L (136-145); Total Protein,Serum 7.9 g/dl (6.3-8.2)
== END 2024-10-09 23:59 | disposition home or self-care (01) ==
LOC: LAB.DROPOF 17:30
PROVIDERS: PCP Family Medicine; Visit Provider Family Medicine
DX: M79.643 Pain in unspecified hand (principal); I10 Essential (primary) hypertension
CPT/HCPCS: 80053; 85651

== ENCOUNTER 2025-01-10 18:15 | Outpatient (CLI) | payer BC, OTHER, SELFPAY | END 2025-01-10 23:59 | LOC: LAB.DROPOF 01-12 01:32 | PROVIDERS: PCP Student in an Organized Health Care Education/Training Program; Visit Provider Student in an Organized Health Care Education/Training Program | DX: N39.0 Urinary tract infection, site not specified (principal) | CPT/HCPCS: 87086; 87088; 87186 ==